=== PATIENT | male | born 2005 | race Caucasian/White ===

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

== ENCOUNTER 2025-03-28 19:01 | Emergency (ER) | payer BC, MEDICAID ==
[2025-03-28 19:10] VITALS: BP 151/83
[2025-03-28] MEDS: Fluorescein 1 MG Ophth Strip EYERT ONE (21:22)
[2025-03-28] MEDS: Tetracaine HCl/PF 0.5% 4 ML Bottle EYERT ONE (21:22)
[2025-03-28] MEDS: Polymyxin B/Trimethoprim 10 ML Bottle EYERT ONE (21:53)
[2025-03-28 21:55] VITALS: PULSE 87
== END 2025-03-28 21:15 | disposition home or self-care (01) ==
LOC: JD.ED 19:01
DX: T15.01XA Foreign body in cornea, right eye, initial encounter (principal); Z91.040 Latex allergy status; Z88.0 Allergy status to penicillin; Z88.1 Allergy status to other antibiotic agents; Z79.899 Other long term (current) drug therapy; Z79.51 Long term (current) use of inhaled steroids; W44.D9XA Other magnetic metal objects entering into or through a natural orifice, initial encounter
CPT/HCPCS: 65220; 70030-26-RT; 70030-RT; 99283; 99283-25; J3490